=== PATIENT | female | born 1975 | race American Indian/Alaskan Native ===

== ENCOUNTER 2019-03-19 01:22 | Emergency (ER) | payer SELFPAY ==
[2019-03-19 01:33] VITALS: BP 140/85
[2019-03-19] MEDS ORDERED: IBUPROFEN ONE ×2 (01:42→01:45)
[2019-03-19] MEDS ORDERED: IBUPROFEN PO ONE (01:45)
== END 2019-03-19 03:00 | disposition left against medical advice (07) ==
LOC: ED 01:22
DX: R51 Headache (principal); Z53.21 Procedure and treatment not carried out due to patient leaving prior to being seen by health care provider

== ENCOUNTER 2019-03-19 18:51 | Emergency (ER) | payer SELFPAY ==
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
--- NOTE | 2019-03-19 20:35 | XRay Report ---
PROCEDURE: XR KNEE 3V RT TECHNIQUE: Frontal, lateral and oblique views right knee HISTORY: right knee pain COMPARISONS: None FINDINGS: There is evidence of degenerative change of the medial compartment of the tibiofemoral joint with jacquie nt space loss and osteophyte formation. There is evidence of degenerative change of the patellofemoral joint with osteophyte formation. There is no evidence of fracture or subluxation. The soft tissues are unremarkable. IMPRESSION: 1. Evidence of degenerative change tibiofemoral and patellofemoral joints. 2. No evidence of fracture or subluxation. This document is electronically signed by Jo Ann Klein MD., March 19 2019 08:33:27 PM ET
[2019-03-19] MEDS ORDERED: TORADOL IM ONE (21:04)
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
[2019-03-19 22:44] VITALS: BP 125/74
== END 2019-03-19 22:48 | disposition home or self-care (01) ==
LOC: ED 18:51
DX: S86.911A Strain of unspecified muscle(s) and tendon(s) at lower leg level, right leg, initial encounter (principal); I10 Essential (primary) hypertension; Z90.710 Acquired absence of both cervix and uterus; Z79.899 Other long term (current) drug therapy; Z98.890 Other specified postprocedural states; Z88.6 Allergy status to analgesic agent; V89.2XXA Person injured in unspecified motor-vehicle accident, traffic, initial encounter; Y93.89 Activity, other specified; Y92.488 Other paved roadways as the place of occurrence of the external cause; Y99.8 Other external cause status
CPT/HCPCS: 73562; 96372; 99283; J1885

== ENCOUNTER 2019-08-11 12:37 | Emergency (ER) | payer SELFPAY ==
[2019-08-11 13:54] VITALS: BP 138/82
--- NOTE | 2019-08-11 14:08 | Event Note ---
ED Screening Note Date of service: 08/11/19 Time: 14:06 ED Screening Note: 43 y o female with PMH of DM on metformin 500mmg daily presents with hyperglycemia today: 359 at nurse This initial assessment/diagnostic orders/clinical plan/treatment(s) is/are subject to change based on patients health status, clinical progression and re- assessment by fellow clinical providers in the ED. Further treatment and workup at subsequent clinical providers discretion. Patient/guardian urged not to elope from the ED as their condition may be serious if not clinically assessed and managed. Initial orders include: FS labs IVF insulin ACC eval
[2019-08-11 14:56] LABS: Basophils # (Auto) 0.1 K/mm3 (0.0-0.1); Basophils % (Auto) 0.8 % (0.0-1.8); Eosinophils # (Auto) 0.3 K/mm3 (0.0-0.4); Eosinophils % (Auto) 2.1 % (0.0-4.3); Hematocrit 36.7 % (30.3-42.9); Hemoglobin 11.6 gm/dl (10.1-14.3); Lymphocytes # (Auto) 2.7 K/mm3 (1.2-5.4); Lymphocytes % (Auto) 20.8 % (13.4-35.0); Mean Corpuscular HGB Conc 32 % (30-34); Mean Corpuscular Volume 86 fl (79-97); Monocytes # (Auto) 0.8 K/mm3 (0.0-0.8); Monocytes % (Auto) 6.3 % (0.0-7.3); Platelet Count 269 K/mm3 (140-440); Red Blood Count 4.29 M/mm3 (3.65-5.03); Red Cell Distribution Width 16.8 % (13.2-15.2)
[2019-08-11 15:18] LABS: Alanine Aminotransferase 18 units/L (7-56); BUN/Creatinine Ratio 18; Blood Urea Nitrogen 16 mg/dL (7-17); Calcium 9.2 mg/dL (8.4-10.2); Hemolysis Index 25
--- NOTE | 2019-08-11 17:14 | Emergency Department Report ---
ED General Adult HPI - General Chief complaint: Hyperglycemia Stated complaint: HBS Time Seen by Provider: 08/11/19 17:05 Source: patient, RN notes reviewed Mode of arrival: Ambulatory Limitations: No Limitations - History of Present Illness Initial comments: This is a pleasant 43-year-old female. This patient is not known to this provider previously. Her primary care doctor is Dr. Michel. She has a history of obesity, and newly diagnosed diabetes, and reports being on metformin, 500 mg twice daily. She states that she is not , she states she has not delivered her given within the past 6 weeks. She further denies DVT and pulmonary embolism risk factors. The patient is sent to the ER by her job for medical clearance. The patient was at work, and reported feeling lightheaded, weak, sweaty, dizzy. She was found to have hyperglycemia with a sugar of 359. The symptoms are now resolved. Patient states that she drank a lot of water. She indicates that she was not having physical pain. She is not having physical pain now. The patient makes no complaint of blurry vision or change in vision. -: Sudden Consistency: now resolved Improves with: none Worsens with: none - Related Data Previous Rx's Medication Instructions Recorded Last Taken Type Ibuprofen [Motrin] 600 mg PO Q8H PRN #60 tablet 05/20/14 Unknown Rx Lisinopril/Hydrochlorothiazide 1 tab PO QDAY #90 tablet 05/20/14 Unknown Rx [Zestoretic 10-12.5 mg] traMADoL [Ultram] 50 mg PO Q4HR PRN #30 tablet 05/20/14 Unknown Rx Cyclobenzaprine [Flexeril] 10 mg PO TID PRN #30 tablet 03/19/19 Unknown Rx Menthol/Camphor [[place] 1 applicatio TP QID PRN #1 tube 03/19/19 Unknown Rx Ointment] Naproxen [Naprosyn] 500 mg PO BID PRN #30 tablet 03/19/19 Unknown Rx Allergies Allergy/AdvReac Type Severity Reaction Status Date / Time codeine AdvReac Itching Verified 05/20/14 08:23 ED Review of Systems ROS: Stated complaint: HBS Other details as noted in HPI Constitutional: weakness Eyes: denies: vision change ENT: denies: congestion Respiratory: denies: wheezing Cardiovascular: denies: chest pain, syncope Gastrointestinal: nausea. denies: vomiting Genitourinary: denies: dysuria Skin: denies: lesions Neurological: weakness Hematological/Lymphatic: denies: easy bleeding ED Past Medical Hx - Past Medical History Hx Hypertension: Yes Hx Diabetes: Yes - Surgical History Additional Surgical History: knee surg. HYSTERECTOMY Partial - Social History Smoking Status: Never Smoker - Medications Home Medications: Home Medications Medication Instructions Recorded Confirmed Last Taken Type Ibuprofen [Motrin] 600 mg PO Q8H PRN #60 tablet 05/20/14 Unknown Rx Lisinopril/Hydrochlorothiazide 1 tab PO QDAY #90 tablet 05/20/14 Unknown Rx [Zestoretic 10-12.5 mg] traMADoL [Ultram] 50 mg PO Q4HR PRN #30 tablet 05/20/14 Unknown Rx Cyclobenzaprine [Flexeril] 10 mg PO TID PRN #30 tablet 03/19/19 Unknown Rx Menthol/Camphor [[place] 1 applicatio TP QID PRN #1 tube 03/19/19 Unknown Rx Ointment] Naproxen [Naprosyn] 500 mg PO BID PRN #30 tablet 03/19/19 Unknown Rx ED Physical Exam - General Limitations: No Limitations General appearance: alert, in no apparent distress, obese - Head Head exam: Present: atraumatic, normocephalic - Eye Eye exam: Present: normal appearance, PERRL, EOMI. Absent: nystagmus Pupils: Present: other (visual acuity intact to finger counting, color perception, reading at a close distance) - ENT ENT exam: Present: normal exam, normal orophraynx, mucous membranes moist, normal external ear exam - Neck Neck exam: Present: normal inspection, full ROM. Absent: tenderness, meningismus - Respiratory Respiratory exam: Present: normal lung sounds bilaterally. Absent: respiratory distress - Cardiovascular Cardiovascular Exam: Present: regular rate, normal rhythm, systolic murmur (there is a 2 at a 6 nonradiating systolic murmur, heard best in right left intercostal spaces.). Absent: bradycardia, tachycardia, irregular rhythm, diastolic murmur, rubs, gallop - GI/Abdominal GI/Abdominal exam: Present: soft. Absent: distended, tenderness, guarding, rebound, rigid, pulsatile mass - Extremities Exam Extremities exam: Present: normal inspection, full ROM, other (2+ pulses noted in the bilateral upper, lower extremities. There is no long bone tenderness. Musculoskeletal compartments are soft. The pelvis is stable.). Absent: pedal edema, joint swelling, calf tenderness - Back Exam Back exam: Present: normal inspection, full ROM. Absent: tenderness, CVA tenderness (R), CVA tenderness (L), paraspinal tenderness, vertebral tenderness - Neurological Exam Neurological exam: Present: alert (there is no past-pointing. There is normal [id number]. There is no pronator drift.), oriented X3, normal gait, other (there is no facial droop. The tongue is midline. Extraocular movements are intact bilaterally. Patient speaking in full complete sentences. Shoulder shrug is intact bilaterally. Hearing is grossly intact bilaterally. Visual acuity intact to finger counting and color perception at a close distance. 5/5 strength 4 extremities. Sensation intact to light touch in 4 extremities.). Absent: motor sensory deficit - Psychiatric Psychiatric exam: Present: normal affect, normal mood - Skin Skin exam: Present: warm, dry, intact, normal color. Absent: rash ED Course Vital Signs 08/11/19 13:53 Temperature 98.6 F Pulse Rate 67 Respiratory 18 Rate Blood Pressure 138/82 O2 Sat by Pulse 100 Oximetry ED Medical Decision Making - Lab Data Result diagrams: 08/11/19 14:35 08/11/19 14:35 Vital Signs 08/11/19 13:53 Temperature 98.6 F Pulse Rate 67 Respiratory 18 Rate Blood Pressure 138/82 O2 Sat by Pulse 100 Oximetry - EKG Data -: EKG Interpreted by De EKG shows normal: sinus rhythm Rate: normal - EKG Data 08/11/19 17:53 There is no prior EKG available for comparison. The EKG shows a sinus rhythm, 75 bpm, normal axis, sinus arrhythmia, the QTC is within normal limits, there is borderline high left ventricular voltage, the EKG is not consistent with STEMI. - Medical Decision Making Differential diagnosis, including not limited to: Orthostasis, vagal event, hyperglycemia, general medical exam Assessment and plan: 43-year-old female, who is afebrile with reassuring vital signs, with a primary complaint of request for medical clearance to return to work after having episode of high blood sugar, lightheadedness, fatigue and weakness. She is not having physical pain. She denies DVT and pulmonary embolism risk factors, she is low risk by well's criteria, and she is perc negative Her physical exam is unremarkable, screening laboratory studies unremarkable, EKG Critical care attestation.: If time is entered above; I have spent that time in minutes in the direct care of this critically ill patient, excluding procedure time. ED Disposition Clinical Impression: History of hyperglycemia Disposition: DC- TO HOME OR SELFCARE Is pt being admited?: No Does the pt Need Aspirin: No Condition: Stable Additional Instructions: Continue current outpatient medications. Make certain to adhere to a diabetic appropriate diet. Follow-up with your primary care doctor within the next month. Recommend physical activities as tolerated, weight loss as tolerated, consumption of fiber, lean protein, vegetables, avoidance of simple carbohydrates, starch and processed foods. Return to the emergency room right away with projectile vomiting, change in mental status, confusion, inability to tolerate liquid feeds, new, worsened or different symptoms not present on the initial emergency room evaluation. Referrals: [facility] [Provider Group] - 3-5 Days [facility] [Provider Group] - 3-5 Days
== END 2019-08-11 18:18 | disposition home or self-care (01) ==
LOC: ED 12:37
DX: R42 Dizziness and giddiness (principal); R53.1 Weakness; I10 Essential (primary) hypertension; E11.9 Type 2 diabetes mellitus without complications
CPT/HCPCS: 36415; 80053; 82962; 85025; 93005; 93010